=== PATIENT | female | born 1995 | race Caucasian/White ===

== ENCOUNTER 2018-03-18 15:12 | Inpatient (IN) | payer BC ==
--- NOTE | 2018-03-18 17:21 | HP ---
General Information - General Information Maternal Age: 22 Grav: 1 Para: 0 SAB: 0 IEA: 0 Estimated Due Date: 03/11/18 Determined By: Early Ultrasound Gestational Age in Weeks and Days: 41 Weeks and 0 Days Maternal Blood Type and Rh: O Positive - Results this Serology/RPR Result: Non-Reactive Rubella Result: Immune HBsAg Result: Negative HIV Result: Negative GBS Culture Result: Negative Past Medical History Delivery History: See Records Pertinent Past Medical History: Non-Contributory Pertinent Past Surgical History: None Pertinent Family History: Non-Contributory Family History Comment: DM, thyroid disease,CVD, HTN - Antepartal Records Antepartal Records: Reviewed, Uncomplicated Review of Systems Constitutional: Comfortable CV Complaint: No Respiratory: Shortness of Breath: No Gastrointestinal: No Nausea/Vomiting, Normal Bowel Movement Genitourinary: No Dysuria, No Bleeding, No Leaking Fluid Musculoskeletal: Back Pain, Contractions Neurological: No Headache Movement: Normal Exam Allergies/Adverse Reactions: Allergies No Known Allergies Allergy (Verified 03/18/18 00:48) BP: 114/63, P: 80, R: 20, T: 98.8, 02: 99% - Measurements Height: 5 ft 2 in Weight: 144 lb Weight in lbs: 144 Body Mass Index (BMI): 26.3 Pre- Weight: 108 lb 0.001 oz Weight Gained This : 35.999 lbs and 0.015 ozs - Exam Abdomen: No Upper Quadrant Pain Breast: Breast Exam Deferred CVA: No CVA Tenderness Extremities: No Edema Heart: Normal Rhythm/Heart Sounds HEENT: No Significant Findings Lungs: Clear Bilaterally Rectal: Rectal Exam Deferred Targeted Exam Findings Estimated Weight: 8lbs 13oz by ultrasound 03/18/18 Cervical Exam: 5cm Effacement: 90% Station: -1 Presenting Part: Vertex Membrane Status: Bulging EFM Findings - External Monitor Findings Baseline Heart Rate: 150 External Monitor Findings: Accelerations Present, No Pattern of Variable or Late Decelerations, Variability Moderate, Baseline Stable Contractions: Regular, 45-90 Seconds Contraction Frequency: 5-7 min Assessment/Plan - Reason for Visit Reason for Visit: labor - Plan Plan: Active Labor - Date/Time of Admission Date of Admission: 03/18/18 Time of Admission: 16:00
[2018-03-19] MEDS ORDERED: Dibucaine 1% 28.35 GM TUBE PR PRN (02:09)
[2018-03-19] MEDS ORDERED: Measles, Mumps,Rubella VACC* 0.5 ML/VIAL SUBCUT ONE (02:09)
[2018-03-19] MEDS ORDERED: OXYTOCIN* 10 UNITS/ML 1 ML VIAL IM ONE (02:09)
[2018-03-19] MEDS ORDERED: Witch Hazel PAD* JAR TOPICAL PRN (02:09)
[2018-03-19] MEDS ORDERED: Glycerin ADULT SUPP PR PRN (02:09)
[2018-03-19] MEDS ORDERED: Acetaminophen TAB* 325 MG PO PRN (02:09)
[2018-03-19] MEDS ORDERED: Simethicone TAB* 80 MG TAB.CHEW PO SCH (08:30)
[2018-03-19] MEDS: Ibuprofen TAB* 600 MG PO PRN ×2 (09:41→21:11)
[2018-03-19] MEDS: Docusate CAP* 100 MG PO SCH ×2 (09:42→21:11)
[2018-03-20 06:43] LABS: ABS Basophils 0.1 10^3/ul (0-0.2); ABS Eosinophils 0.1 10^3/ul (0-0.6); ABS Monocytes 1.1 10^3/ul (0-0.8); ABS Neutrophils 8.9 10^3/ul (1.5-7.7); ABS Nucleated RBC 0 10^3/ul; Eosinophil % 1.1 % (0-6); Hematocrit 35 % (35-47); Hemoglobin 11.5 g/dl (12.0-16.0); Lymphocyte % 22.5 % (25-47); Mean Corpuscular HGB Conc 33 g/dl (31-36); Mean Corpuscular Hemoglobin 27 pg (27-31); Mean Corpuscular Volume 82 fL (80-97); Mean Platelet Volume 7.6 um3 (7.4-10.4); Nucleated Red Blood Cells % 0; Platelet Count 312 10^3/ul (150-450); Red Blood Count 4.24 10^6/ul (4.0-5.4); Red Cell Distribution Width 13 % (10.5-15); White Blood Count 13.2 10^3/ul (3.5-10.8)
[2018-03-20 08:10] VITALS: BP 101/67
[2018-03-20] MEDS ORDERED: Ferrous Gluconate TAB* 324 MG TAB PO SCH (09:00)
[2018-03-20] MEDS: Docusate CAP* 100 MG PO SCH ×3 (09:11→14:22)
[2018-03-20] MEDS: Ibuprofen TAB* 600 MG PO PRN ×3 (12:11→23:55)
[2018-03-20] MEDS ORDERED: Varicella Virus Vaccine Live* 0.5 ML VIAL SUBCUT ONE (18:00)
[2018-03-21] MEDS: Docusate CAP* 100 MG PO SCH (09:29)
== END 2018-03-21 11:41 | disposition home or self-care (01) | DRG 560 ==
LOC: MCHOBOUT 15:12 → MCHOB 16:25
PROVIDERS: ADMIT Midwife; ATTEND Obstetrics & Gynecology
PROC: 10E0XZZ Delivery of Products of Conception, External Approach (ICD-10-PCS; principal; 2018-03-19)
PROC: 10907ZC Drainage of Amniotic Fluid, Therapeutic from Products of Conception, Via Natural or Artificial Opening (ICD-10-PCS; 2018-03-19)
PROC: 0W8NXZZ Division of Female Perineum, External Approach (ICD-10-PCS; 2018-03-19)
DX: O48.0 Post-term pregnancy (principal); Z3A.41 41 weeks gestation of pregnancy; Z37.0 Single live birth
CPT/HCPCS: 36415; 85025; 90707; A9270-GY

== ENCOUNTER 2018-03-24 17:49 | Emergency (ER) | payer BC ==
[2018-03-24] MEDS ORDERED: Ibuprofen TAB* 600 MG PO PRN (18:47)
--- NOTE | 2018-03-24 18:50 | ED ---
Progress - Progress Note Progress Note: Patient was met in the ER by her TRADING MANAGER Dr. Mosley for lochia after episiotomy. Patient states she has no desire to be seen by the ER physician. Dr. Mosley has examined the patient and made disposition. Course/Dx - Course Course Of Treatment: Patient was not examined nor was a history obtained by me. She was seen by her TRADING MANAGER in the ER. - Diagnoses Provider Diagnoses: Postoperative vaginal bleeding Discharge - Sign-Out/Discharge Documenting (check all that apply): Discharge/Admit/Transfer - Discharge Plan Condition: Good Disposition: HOME Referrals: Don Mosley MD [Medical Doctor] - Additional Instructions: Follow-up with Dr. Mosley. Take antibiotics prescribed by him. Return to ER if worse, new symptoms or other concerns. - Billing Disposition and Condition Condition: GOOD Disposition: HOME
[2018-03-24] MEDS ORDERED: Amoxicillin/Clavulanate TAB* 500 MG PO SCH (19:00)
[2018-03-24 19:52] VITALS: BP 110/68
== END 2018-03-24 19:52 | disposition home or self-care (01) ==
LOC: ED 17:49
DX: N99.820 Postprocedural hemorrhage of a genitourinary system organ or structure following a genitourinary system procedure (principal)
CPT/HCPCS: 99282; A9270-GY

== ENCOUNTER 2020-12-20 20:10 | Inpatient (IN) ==
[2020-12-20] MEDS ORDERED: Lactated Ringers 1000 ml BAG 1,000 ML IV ONE (21:14)
[2020-12-20] MEDS ORDERED: Buffered Lidocaine 1% SYRIN 1 ml INTRADERM ONE (21:14)
[2020-12-20 21:45] LABS: Urine Benzodiazepine Screen None Detected (None Detect); Urine Cannabinoids Screen None Detected (None Detect); Urine Opiates Screen None Detected (None Detect)
[2020-12-20] MEDS ORDERED: Lactated Ringers 1000 ml BAG 1,000 ML IV SCH (22:00)
[2020-12-20] MEDS ORDERED: OBEPIDURAL 250 ML EPIDURAL ONE (23:01)
[2020-12-20 23:26] LABS: ABS Monocytes 0.6 10^3/ul (0-0.8); ABS Neutrophils 7.4 10^3/ul (1.5-7.7); Eosinophil % 0.3 %; Hematocrit 34 % (35-47); Hemoglobin 11.5 g/dL (12.0-16.0); Lymphocyte % 20.2 %; Mean Corpuscular HGB Conc 34 g/dL (31-36); Mean Corpuscular Hemoglobin 27 pg (27-31); Mean Corpuscular Volume 80 fL (80-97); Mean Platelet Volume 8.3 fL (7.4-10.4); Nucleated Red Blood Cells % 0.1; Platelet Count 318 10^3/uL (150-450); Red Blood Count 4.27 10^6 /uL (3.70-4.87); Red Cell Distribution Width 14 % (10-15); White Blood Count 10.1 10^3/uL (3.5-10.8)
[2020-12-21] MEDS ORDERED: EPHEDrine (Pressors) 50 MG/ML VIAL IV PUSH PRN ×2 (00:49)
[2020-12-21] MEDS ORDERED: Sodium Citrate/Citric Acid LIQ 15 ML UDC PO PRN (00:49)
[2020-12-21] MEDS ORDERED: Lactated Ringers 1000 ml BAG 1,000 ML IV ONE (00:49)
[2020-12-21] MEDS ORDERED: Phenylephrine 40 mcg/mL 10mL (400mcg) SYRINGE IV PUSH PRN ×2 (00:49)
[2020-12-21] MEDS ORDERED: Lactated Ringers 1000 ml BAG 1,000 ML IV SCH (01:00)
[2020-12-21] MEDS ORDERED: OBEPIDURAL 250 ML EPIDURAL SCH (01:00)
[2020-12-21] MEDS ORDERED: Oxytocin in LR 20 UNITS/1,000 ML BAG IVPB ONE (02:28)
[2020-12-21] MEDS ORDERED: Witch Hazel PAD JAR TOPICAL PRN (02:55)
[2020-12-21] MEDS ORDERED: Measles, Mumps,Rubella VACC 0.5 ML/VIAL SUBCUT ONE (02:55)
[2020-12-21] MEDS ORDERED: Dibucaine 1% OINT 28.35 GM TUBE PR PRN (02:55)
[2020-12-21] MEDS ORDERED: Glycerin ADULT 2.4 gm SUPP PR PRN (02:55)
[2020-12-21] MEDS ORDERED: Oxytocin in LR 20 UNITS/1,000 ML BAG IVPB SCH (03:00)
[2020-12-21] MEDS ORDERED: Tetan/Diph/Pertus SYR(Tdap) 0.5 ML SYR(BOOSTRIX) use SYR contains LATEX IM ONE (17:27)
[2020-12-21] MEDS ORDERED: Measles, Mumps,Rubella VACC 0.5 ML/VIAL ONE (18:00)
[2020-12-22 07:28] VITALS: BP 107/68
[2020-12-22 07:42] LABS: ABS Eosinophils 0.1 10^3/ul (0-0.6); ABS Lymphocytes 2.1 10^3/ul (1.0-4.8); ABS Monocytes 0.4 10^3/ul (0-0.8); Eosinophil % 1.5 %; Hematocrit 31 % (35-47); Lymphocyte % 27.5 %; Mean Corpuscular HGB Conc 32 g/dL (31-36); Mean Corpuscular Hemoglobin 26 pg (27-31); Mean Corpuscular Volume 81 fL (80-97); Mean Platelet Volume 8.1 fL (7.4-10.4); Platelet Count 214 10^3/uL (150-450); Red Blood Count 3.78 10^6 /uL (3.70-4.87); Red Cell Distribution Width 14 % (10-15); White Blood Count 7.6 10^3/uL (3.5-10.8)
== END 2020-12-22 11:58 | disposition home or self-care (01) | DRG 560 ==
LOC: MCHOBOUT 20:10 → MCHOB 20:59
PROVIDERS: ADMIT Midwife; ATTEND Midwife